=== PATIENT | female | born 1955 | race Caucasian/White ===

== ENCOUNTER → 2017-01-19 18:53 | Outpatient (CLI) | payer OTHER ==
[2009-06-07 08:05] VITALS: BMI 21.3
== END | disposition home or self-care (01) ==
LOC: D.MAMMO 13:45
DX: Z12.31 Encounter for screening mammogram for malignant neoplasm of breast (principal)

== ENCOUNTER 2019-03-01 09:00 | Outpatient (CLI) | payer OTHER ==
[2009-06-07 08:05] VITALS: BMI 21.3
== END 2019-03-01 10:00 | disposition home or self-care (01) ==
LOC: D.MAMMO 09:00
PROVIDERS: ATTEND Family Medicine
DX: Z12.31 Encounter for screening mammogram for malignant neoplasm of breast (principal)

== ENCOUNTER 2020-06-17 09:15 | Outpatient (CLI) | payer OTHER ==
[2009-06-07 08:05] VITALS: BMI 21.3
== END 2020-06-17 23:59 | disposition home or self-care (01) ==
LOC: D.MAMMO 09:15
PROVIDERS: ATTEND Family Medicine
DX: Z12.31 Encounter for screening mammogram for malignant neoplasm of breast (principal)

== ENCOUNTER → 2020-07-24 08:54 | Outpatient (CLI) | payer OTHER ==
[2009-06-07 08:05] VITALS: BMI 21.3
== END | disposition home or self-care (01) ==
LOC: D.CT 08:54
PROVIDERS: ATTEND Obstetrics & Gynecology
DX: R10.32 Left lower quadrant pain (principal)